=== PATIENT | female | born 1975 | race Caucasian/White ===

== ENCOUNTER 2020-08-10 10:02 | Emergency (ER) | payer OTHER ==
[~2020-08-10] VITALS: Ht 162.6 cm; Wt 68.0 kg
[~2020-08-10 10:02] MED LIST: GABAPENTIN300 MG PO; IBUPROFEN600 MG PO; LYRICA150 MG PO; PERCOCET 5-3251 EACH PO
[2020-08-10] MEDS ORDERED: VENTOLIN HFA18 GM INH (10:32)
[2020-08-10] MEDS ORDERED: NORCO 5-325 TA1 EACH PO (13:15)
== END 2020-08-10 13:25 | disposition home or self-care (01) ==
LOC: ED 10:02
DX: S82.432A Displaced oblique fracture of shaft of left fibula, initial encounter for closed fracture (principal); X50.9XXA Other and unspecified overexertion or strenuous movements or postures, initial encounter; F17.200 Nicotine dependence, unspecified, uncomplicated
CPT/HCPCS: 29515; 73610; 99283-25